=== PATIENT | male | born 1940 | race Caucasian/White ===

== ENCOUNTER 2017-06-03 11:00 | Inpatient (IN) | payer MEDICARE ==
--- NOTE | 2017-05-29 14:23 | HP ---
HISTORY AND PHYSICAL: DATE OF SURGERY: 06/03/17 SURGEON: Jazz Charles MD * (DICTATED BY JUNAID MAYER) PROCEDURE: Right total knee arthroplasty. CHIEF COMPLAINT: Right knee pain. HISTORY OF PRESENT ILLNESS: Mr. Dougherty is a 77-year-old gentleman with complaints of right knee pain secondary to advanced osteoarthritis. He has failed conservative management and elected to proceed with a right total knee arthroplasty, which is scheduled for 06/03/17. PAST MEDICAL HISTORY: Hyperlipidemia, hypertension, history of CVA, myelodysplastic syndrome, sleep apnea, AFib, and history of a PE. PAST SURGICAL HISTORY: Laparotomy, deviated septum surgery, hernia repair x2, left heel surgery, right knee arthroscopy. CURRENT MEDICATIONS: 1. [place]-3. 2. Metoprolol 25 mg daily. 3. Lisinopril 10 mg daily. 4. Tylenol as needed. 5. Benadryl as needed. 6. Hydroxyurea 500 mg daily. 7. Lipitor 20 mg at bedtime. 8. Coumadin. ALLERGIES: No known drug allergies. FAMILY HISTORY: Prostate cancer and Afib. SOCIAL HISTORY: This is a 77-year-old gentleman, lives with his . He does not smoke, use drugs or alcohol. REVIEW OF SYSTEMS: A complete 14-point review of systems was reviewed with the patient. It was positive for occasional lightheadedness, history of stroke and pulmonary embolism. PHYSICAL EXAMINATION GENERAL: He is well developed, well nourished, in no acute distress. He is alert and oriented x3. Pleasant mood and appropriate affect. VITAL SIGNS: He stands 6 feet 2 inches tall, weighs 186 pounds. His blood pressure is 128/74, his heart rate is 72. HEENT: Normocephalic, atraumatic. NECK: Supple. No palpable lymph nodes. PULMONARY: The lungs are clear to auscultation bilaterally. CARDIO: Regular rate and rhythm. ABDOMEN: Soft, nontender, and nondistended. MUSCULOSKELETAL: Right lower extremity - the skin is intact. There are no open wounds or abrasions. He has tenderness over the medial and lateral joint line. His lower extremity muscle group strengths are intact at 5/5. He has 2+ dorsalis pedis pulses and intact sensation. NEUROLOGIC: Cranial nerves II through XII are intact. ASSESSMENT AND PLAN: Mr. Dougherty is a 77-year-old gentleman with complaints of right knee pain secondary to advanced osteoarthritis. He has failed conservative management and has elected to proceed with a right total knee arthroplasty, which is scheduled for 06/03/[address] Charles discussed the risks and benefits of the surgery at today's visit and all of his questions were answered. He was instructed to stop taking his Coumadin a week prior to the surgery, though bridge him on Lovenox and will stop that 24 hours prior to discharge. He will see Dr. Charles 2 weeks after the surgery. JUNAID MAYER [id number]/[facility] #: [id number] ANDRÉS
[~2017-06-03 11:00] MED LIST: Buffered Lidocaine 0.9% SYRIN* 5 ML/SYR SYRINGE INTRADERM ONE; Famotidine IV* 10 MG/ML 2 ML (20 mg) IV ONE; Gabapentin CAP(*) 300 MG PO ONE; Lidocaine 2% PF * 5 ML VIAL ONE; ROPIVACAINE 5 MG/ML 30 ML BTL (0.5%) ONE
[2017-06-03] MEDS ORDERED: fentaNYL* 50 MCG/ML 2 ML VIAL (100 MCG VIAL) ONE (11:17)
[2017-06-03] MEDS ORDERED: Midazolam* 1 MG/ML 5 ML VIAL (5 MG) ONE (11:17)
[2017-06-03] MEDS ORDERED: KETAMINE HCL* 50 MG/ML 10 ML VIAL ONE (11:18)
[2017-06-03] MEDS ORDERED: Morphine PF AMP (0.5MG/ML)* 5 MG/10 ML AMP ONE (11:18)
[2017-06-03] MEDS ORDERED: Gabapentin CAP(*) 300 MG ONE (11:29)
[2017-06-03] MEDS ORDERED: Buffered Lidocaine 0.9% SYRIN* 5 ML/SYR SYRINGE ONE (11:29)
[2017-06-03] MEDS ORDERED: Famotidine IV* 10 MG/ML 2 ML (20 mg) ONE (11:29)
--- NOTE | 2017-06-03 11:43 | RAD ---
Indication: Hypertension. Sleep apnea. Arrhythmia. Comparison: December 07, 2014 Technique: Upright AP 1113 hours Report: No focal pulmonary lesion, compelling alveolar consolidation, pleural effusion, pneumothorax. Upper normal heart size accounting for portable AP technique. Unremarkable central pulmonary vasculature and mediastinal contours. Bilateral acromioclavicular and glenohumeral joint arthropathy noted. IMPRESSION: Upper normal heart size. No acute cardiopulmonary process evident.
[2017-06-03] MEDS ORDERED: Dexamethasone IV* 4 MG/ML 1 ML (4 MG) ONE (11:47)
[2017-06-03] MEDS ORDERED: Propofol* 10 MG/ML 20 ML BTL IV PUSH ONE (11:47)
[2017-06-03] MEDS ORDERED: Lidocaine 2% PF * 5 ML VIAL ONE (11:47)
[2017-06-03] MEDS ORDERED: Ondansetron INJ* 2 MG/ML VIAL ONE (11:47)
[2017-06-03] MEDS ORDERED: Ketorolac INJ* 30 MG/ML 1 ML VIAL ONE (11:47)
[2017-06-03] MEDS ORDERED: ceFAZolin 2 GM PREMIX (*) 50 ML IVPB ONE (12:11)
[2017-06-03] MEDS ORDERED: Bupivacaine 0.5% SDV PF* 30 ML VIAL ONE (14:07)
[2017-06-03] MEDS ORDERED: oxyCODONE TAB* 5 MG TAB PO PRN ×2 (15:11→20:00)
[2017-06-03] MEDS ORDERED: Acetaminophen TAB* 325 MG PO PRN (15:11)
[2017-06-03] MEDS ORDERED: DiMENhydriNATE IV* 50 MG/ML VIAL IV PUSH PRN (15:11)
[2017-06-03] MEDS ORDERED: Gabapentin CAP(*) 100 MG PO ONE (15:13)
[2017-06-03] MEDS ORDERED: Naloxone* 0.4 MG/ML 1 ML VIAL IV PRN (15:14)
[2017-06-03] MEDS ORDERED: Nalbuphine* 20 MG/ML 1 ML VIAL IV PRN (15:14)
[2017-06-03] MEDS ORDERED: Ondansetron INJ* 2 MG/ML VIAL IV PRN (15:14)
[2017-06-03] MEDS ORDERED: oxyCODONE/Acetamin 5/325 MG* TAB PO PRN (15:14)
[2017-06-03] MEDS ORDERED: Labetalol IV* 5 MG/ML 20 ML VIAL ONE (15:46)
[2017-06-03] MEDS ORDERED: hydrALAZINE IV* 20 MG/ML VIAL ONE (15:53)
[2017-06-03] MEDS ORDERED: Magnesium Hydroxide LIQ* 30 ML UDC PO PRN (16:26)
[2017-06-03] MEDS ORDERED: Bisacodyl SUPP* 10 MG SUPP PR PRN (16:26)
[2017-06-03] MEDS ORDERED: HYDROmorphone* 1 MG/ML 1 ML CARPUJECT ONE ×2 (17:03→17:31)
--- NOTE | 2017-06-03 18:05 | RAD ---
INDICATION: Right knee arthroplasty COMPARISON: None FINDINGS: 5.6 seconds of fluoroscopy were provided for the orthopedics department. Fluoroscopic spot imaging of the knee were obtained for operative control and show right knee arthroplasty. Post procedure images are pending . CPT II Codes: 6045F (fluoro time doc)
[2017-06-03] MEDS: HYDROmorphone* 1 MG/ML 1 ML CARPUJECT IV PRN ×3 (19:21→19:32)
[2017-06-03] MEDS ORDERED: Gabapentin CAP(*) 100 MG ONE (19:23)
--- NOTE | 2017-06-03 20:37 | RAD ---
INDICATION: Right total knee replacement COMPARISON: April 10, 2017 TECHNIQUE: AP and lateral views were obtained. FINDINGS: Portable views show right knee arthroplasty. Both femoral and tibial components appear well seated. There is an overlying cooling jacket. IMPRESSION: POSTOPERATIVE RIGHT KNEE ARTHROPLASTY.
[2017-06-03] MEDS: D5W 1/2 NS 1000 ML BAG* 1,000 ML IV SCH (21:17)
[2017-06-03] MEDS: Docusate CAP* 100 MG PO SCH (21:19)
[2017-06-03] MEDS ORDERED: Warfarin TAB(*) 6 MG PO ONE (21:30)
[2017-06-03] MEDS: Acetaminophen TAB* 325 MG PO SCH (22:19)
[2017-06-03] MEDS ORDERED: ceFAZolin 1 GM VIAL(*) 1 GM in NS 0.9% 50 ML* 50 ML IVPB SCH (23:00)
[2017-06-03] MEDS: ceFAZolin 1 GM in Dextrose (*) 1 GM/50 ML BAG IVPB SCH (23:07)
--- NOTE | 2017-06-04 00:38 | CONS ---
CC: Dr. Salinas; Dr. Charles * CONSULTATION REPORT: DATE OF CONSULT: 06/03/17 PRIMARY CARE PROVIDER: Dr. Salinas. REQUESTING PHYSICIAN FOR CONSULT: Dr. Charles. MY ATTENDING PHYSICIAN WHILE IN THE HOSPITAL: Dr. Moise Ray (report dictated by Bob Rebollar NP). REASON FOR MEDICAL CONSULT: Evaluation and management of medical comanagement. HISTORY OF PRESENT ILLNESS: Mr. Dougherty is a 77-year-old male patient with a complex medical history. He has a history of hypertension, hyperlipidemia, and history of CVA. He has a history of myelodysplastic syndrome, JUAN FRANCISCO, AFib, a history of PE, and antiphospholipid syndrome. He comes into the orthopedic services today for an elective right total knee replacement. He was evaluated by Dr. Charles in the outpatient setting. He is having significant amount of pain , it was affecting his activities of daily living and he was failing conservative therapy. Because of this, he presented to Dr. Charles's service, it was felt that he would benefit from a total knee replacement which he underwent today. We were asked to evaluate for comanagement. He was evaluated in the PACU. He says he is feeling well. He denies any chest pain, denies any shortness of breath, and denies having any abdominal pain. He says that he is not having any chest pain. He denies feeling lightheaded. He says he has got decreased sensation to the lower extremity, but of note, he did receive a spinal. He denies having any pain in his right knee. He says his pain is actually well controlled. But again because of his complexity, we were asked to evaluate in consult. PAST MEDICAL HISTORY: Significant for: 1. Hypertension. 2. Hyperlipidemia. 3. CVA with residual right-sided weakness and right facial droop and also difficulty with speech. 4. He has a history MDS. 5. JUAN FRANCISCO. 6. AFib. 7. History of PE. 8. Antiphospholipid syndrome. PAST SURGICAL HISTORY: 1. He has had a laparotomy. 2. He has had a deviated septum repair. 3. Hernia repair x2. 4. Left heel surgery. 5. Right knee arthroscopy. 6. Now he is status post right total knee replacement. MEDICATIONS: His home meds according to the preop list include: 1. Warfarin 5 mg in the morning. 2. Warfarin 7.5 mg alternating with 5 mg. 3. [place]-3 1200 mg p.o. q.a.m. 4. Toprol-XL 25 mg daily. 5. Lisinopril 10 mg daily. 6. Hydroxyurea 500 mg p.o. q.a.m. 7. Benadryl 25 mg p.o. daily. 8. Lipitor 20 mg q.a.m. 9. Tylenol 1000 mg p.o. b.i.d. as needed. ALLERGIES TO MEDICATIONS: Include no known drug allergies. FAMILY HISTORY: His mother is alive at the age of 99 and to his knowledge is healthy. Father had a history of prostate cancer. SOCIAL HISTORY: He does not smoke and does not drink. Surrogate decision maker is his . REVIEW OF SYSTEMS: There is no documented fever. He denied having any significant weight change. Denies having any double vision. No ear discharge. No rhinorrhea. No sore throat. No thyroid enlargement. Denies having any chest pain. No orthopnea, no nocturnal dyspnea. There is no abdominal pain. No nausea, no vomiting. No dysuria, no frequency. No seizure, no loss of consciousness. No pruritus and no skin ulcerations. Review of 14 systems completed and all others negative. PHYSICAL EXAM: Vital Signs: Blood pressure 133/70, pulse of 68, respirations 18, O2 sat 94%, and temperature 97.2. General: At this time, Mr. Dougherty is a 77-year- old male patient, who appears to be well-nourished, well-developed, and does not appear to be in any acute distress. He is sitting the PACU bed. HEENT: Head atraumatic and normocephalic. Eyes, EOMs intact. Sclerae anicteric and not pale. Throat, oral mucosa appears to be moist. No oropharyngeal erythema. Neck: Supple. Lungs: Clear to auscultation bilaterally. No wheezes, rales, or rhonchi. Heart sounds S1 and S2, irregularly irregular rate. No murmurs, rubs, or gallops. Abdomen: Soft, flat , and nontender. Bowel sounds hypoactive. Extremities: Pulses were 2+ throughout. No peripheral edema. He is moving all 4 extremities with the exception of the right lower extremity as that is the operative leg. He does have some weakness noted to the right side compared to the left. Neurologically , he is awake, he is alert, he is oriented x3. He does have some dysarthria. He does have a slight right facial droop and he also has some weakness through his right side. No other gross focal deficits. His skin is intact with an exception he does have an incision to the right knee which is covered with an Guillermo dressing. Hemovac is clean, dry, and intact. DIAGNOSTIC STUDIES/LAB DATA: Preop revealed WBC of 6.6, RBC of 4.53, hemoglobin 14.8, hematocrit 44, and platelet count of 273. INR was 1.08. Sodium 139, potassium 4.6, chloride of 105, bicarb 30, BUN 15, creatinine of 1.15, glucose 89. AST 27, and ALT 33. Urine preop negative. He did have a chest x-ray preop, which showed upper normal heart size. No acute cardiac process evident. He had an EKG as well, which showed atrial fibrillation rate of 59. No ST elevations or T-wave inversions were noted. Old medical records were reviewed. ASSESSMENT AND PLAN: Mr. Dougherty is a 77-year-old male patient with multiple medical problems coming into Dr. Charles's service today for an elective right total knee. He will be admitted under orthopedic services; however, we were asked to evaluate for consult. Recommendations at this point are: 1. Status post right total knee replacement. I will defer the management to Dr. Charles. 2. History of hypertension. Continue meds as prescribed. 3. Hyperlipidemia. Continue statin. 4. History of cerebrovascular accident. At this point he is on warfarin. I would recommend getting him back on his blood thinners as soon as possible and I would probably recommend doing full-dose anticoagulation in the form of Lovenox and bridging him to Coumadin until his INR is therapeutic because of his extensive history. 5. Myelodysplastic syndrome. Continue his hydroxyurea. 6. Obstructive sleep apnea. I did order his CPAP and I will order pulse oximetry for 24 hours postop because he did receive spinal. 7. Atrial fibrillation. Again, he has a history of a stroke, he has atrial fibrillation. I think he needs to be bridged with therapeutic Lovenox to warfarin when it is deemed appropriate by Dr. Charles. She suggests starting this in the morning. 8. History of pulmonary embolism and antiphospholipid syndrome. Again, he just had orthopedic surgery, has a huge risk for clots. Again, I think what is deem safe, I would put him on therapeutic Lovenox at 80 mg b.i.d. and bridge him to warfarin until he is therapeutic. I did discuss this with Dr. Charles, she was in agreement with this. We will start this tomorrow. 10. DVT prophylaxis. Again, he will be on therapeutic Lovenox starting tomorrow. 11. Code status. Full code. 12. Fluids, electrolytes, and nutrition. I would recommend a heart-healthy diet. TIME SPENT: On the consult was approximately 60 minutes, greater than half that time was spent [id number] with the patient obtaining my history and physical, the other half time was spent going over the plan of care with the patient and implementing the plan of care. I did discuss the plan of care with my attending, Dr. Ray; he is agreement. BOB REBOLLAR, CODY [id number]/[facility] #: [id number] MTDLeigh Ann
[2017-06-04] MEDS: Acetaminophen TAB* 325 MG PO SCH ×2 (02:36→05:52)
--- NOTE | 2017-06-04 06:16 | OP ---
DATE OF OPERATION: 06/03/17 - ROOM #342 DATE OF : 42 SURGEON: Jazz Charles MD. GALLERY OR MUSEUM CURATOR: JUNAID Neil. Ms. Jessica did help throughout the procedure with preparation of the leg, wound retraction, manipulation of the knee and wound closure. ANESTHESIOLOGIST: Dr. Verito Alexander. ANESTHESIA: Spinal with adductor nerve block. 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 OPERATIVE PROCEDURE: Right total knee arthroplasty. HARDWARE USED: This was a [employer] cemented total knee arthroplasty hardware with 2 packages of Simplex bone cement. For the femur, a size 7 right posterior stabilized Legion nonporous femoral component. For the tibia, size 7 right tibial base plate. For the insert, a 9 mm constrained articular insert size 7/8 and for the patella 35 mm 3 peg all poly patella. TOURNIQUET TIME: 94 minutes. COMPLICATIONS: None. SPECIMEN: Multiple culture swab sent to Pathology, soft tissue from the joint sent to Pathology, multiple pieces of bone and cartilage sent to Pathology. ESTIMATED BLOOD LOSS: 350 cc. BRIEF HISTORY/INDICATION: Mr. Dougherty is 77-year-old gentleman with prior trauma greater than 20 years ago. He had a femoral shaft fracture as well as distal tibial shaft fracture. These were treated with surgery and subsequent hardware removal. He does have callus formation and abnormal alignment of the femoral and tibial shaft. He developed severe end-stage posttraumatic arthritis of the knee joints. He developed a significant flexion contracture of the knee. Patient failed conservative treatment with anti-inflammatories, pain medication, intra- articular injections, and physical therapy. He elected to undergo right total knee arthroplasty due to continued pain and decreased quality of life. Informed consent was obtained from the patient. He understood the risks of the procedure included, but were not limited to bleeding , infection, damage to nearby structures, continued pain, need for further surgery, intraoperative fracture, nerve palsy, hardware failure or loosening, knee stiffness, loss of motion, stroke, heart attack, blood clot, and . He wished to proceed. INTRAOPERATIVE FINDINGS: Intraoperatively, the patient was noted to have a 20 degree flexion contracture with 120 degrees of flexion. Postop range of motion with full extension to 135 degrees of flexion. Patient was noted to have tricompartmental full thickness loss cartilage. He had severe contracture of the MCL and a varus deformity. DESCRIPTION OF PROCEDURE: Mr. Dougherty is 77-year-old gentleman identified in the preanesthesia unit. His right lower extremity was marked as the correct operative side. Informed consent was signed and placed in the chart. The patient was taken to the operating room and placed under spinal anesthesia with an adductor nerve block. A Huffmna catheter was placed. Tourniquet was placed on the right thigh. Right lower extremity was prepped and draped in the usual sterile fashion. Preop time-out was made to correctly identify the patient's side and site. Appropriate perioperative antibiotics were given within 1 hour of incision. Tourniquet was inflated and total tourniquet time for this procedure was 94 minutes. The 10-blade was used to make a standard midline incision of approximately 14 cm. This was carried down sharply to the extensor mechanism. A new 10-blade was used to make a standard medial parapatellar arthrotomy. Patella was subluxed laterally. Electrocautery was used to subperiosteally elevate soft tissue off the superomedial tibia to the mid sagittal plane. The knee was carefully flexed up. Anterior horn of the lateral meniscus was released. ACL was no longer evident. Due to the patient's prior femoral fracture with deformed anatomy, custom implants had [facility] [employer] [facility]. The femoral cutting guide was carefully placed on the distal femur and pinned into position. Oscillating saw was used to make a distal femoral cut. Using the 2 pinholes on the distal femur, size 7 multi- cutting jig was pinned down the distal femur and the appropriate chamfer cuts were made. It was determined that due to the patient's 20 degree flexion contracture, an additional 2-mm of distal femoral bone would be taken. This was carefully done with an oscillating saw. The multi-cutting jig was once again placed and used to make the appropriate chamfer cuts. Next, attention was turned to the preparation of the proximal tibia. The PCL was carefully released and the tibia was subluxed anteriorly. The custom tibial cutting guide was placed on the proximal tibia. It was determined by me that this would not be the appropriate proximal tibial cut, therefore, this was not used. Extramedullary tibial cutting guide was pinned down the proximal tibia. Oscillating saw was used to make a cut perpendicular to the mechanical axis of the tibia. The knee was brought into full extension. There was severe MCL contracture and therefore soft tissue release was carefully performed. The knee was flexed up. Lamina bus monitor was placed both medially and laterally. Any remaining meniscus was carefully removed using electrocautery. Posterior osteophytes were removed using a curved osteotome and curette. Tibial tray and drop anastacio showed satisfactory proximal tibial cut. The knee was brought out into full extension. Spacer block had good fit with full extension. There was tightness medially. A 15 blade was used to make a small amount of pie- crusting along the MCL. Medial and lateral ligament balancing was much improved at this point. Flexion and extension gap was well balanced. A size 7 right femoral component was impacted down into distal femur and had good fit. The box for the posterior stabilized implant was repaired using a reamer and box cut osteotome. Trial size 7 tibial tray with a 9-mm insert trial was placed and the knee was taken through a range of motion. Knee had full extension to 135 degrees of flexion, good patellofemoral tracking. The patella was everted. A 9 mm of patellar bone and cartilage was carefully removed with an oscillating saw. The patella was sized to a size 35. Three peg holes were drilled through the size 35 guide. Size 35 patella was placed and the knee was taken through a range of motion. There was good patellofemoral tracking. All trials were carefully removed. The tibia was subluxed anteriorly and sized to a size 7. Proximal tibia was prepared using a size 7 keel punch. All bony cut surfaces were copiously irrigated with sterile saline and dried. Final implants were cemented into place starting with the tibia followed by the femur and last the patella. A 9 mm insert trial was placed while the knee was brought out to full extension. Tourniquet was turned down at 94 minutes. The knee was copiously irrigated with sterile saline. Once the cement had fully cured, the insert trial was removed. Any excess cement was carefully removed from around the implants and capsule. Electrocautery was used to obtain meticulous hemostasis. A size 7/8 9 mm constrained articular insert was chosen as the final insert due to the MCL pie- crusting and prior contracture. This was locked into position on the tibial tray. Stability of the insert was checked and rechecked and noted to be stable. Final range of motion with full extension to 135 degrees of flexion with satisfactory patellofemoral tracking. Anatomic valgus alignment overall. The knee was copiously irrigated with sterile saline. The extensor mechanism was closed over a medium Hemovac drain using interrupted number #1 Vicryl. The rest of the incision was closed in a layered fashion using 0 and 2-0 Vicryls. Skin was closed using running 3-0 nylon suture. Sterile Xeroform, 4x4s, and Webril were used to cover the incision. Guillermo wrap and cold pack were placed over this. The patient's anesthesia was reversed without difficulty. He was taken to the PACU in stable condition. Intended weightbearing will be weightbearing as tolerated. Intended DVT prophylaxis will be Coumadin with a therapeutic Lovenox bridge due to his prior blood clot history. [id number]/[facility] #: [id number] ANDRÉS
[2017-06-04] MEDS ORDERED: Morphine INJ* 4 MG/ML 1 ML CARPUJECT IV PRN (06:47)
[2017-06-04] MEDS ORDERED: oxyCODONE/Acetamin 5/325 MG* TAB PO PRN (06:47)
[2017-06-04] MEDS ORDERED: diPHENhydraMINE IV* 50 MG/ML 1 ml VIAL (BENADRYL) IV PRN (06:47)
[2017-06-04] MEDS ORDERED: Ondansetron INJ* 2 MG/ML VIAL IV PRN (06:47)
[2017-06-04] MEDS: ceFAZolin 1 GM in Dextrose (*) 1 GM/50 ML BAG IVPB SCH ×2 (06:53→15:04)
[2017-06-04] MEDS: Metoprolol Succinate XL TAB* 25 MG PO SCH (08:30)
[2017-06-04] MEDS: Docusate CAP* 100 MG PO SCH ×2 (08:30→21:06)
[2017-06-04] MEDS: Atorvastatin* 20 MG TAB PO SCH (08:30)
[2017-06-04] MEDS: Lisinopril TAB* 10 MG PO SCH (08:31)
[2017-06-04] MEDS: oxyCODONE/Acetamin 5/325 MG* TAB PO PRN ×4 (08:31→21:06)
[2017-06-04] MEDS: HydroxyUREA CAP* 500 MG CAP PO SCH (08:31)
[2017-06-04] MEDS: Vitamin THERAPEUTIC TAB PO SCH (08:31)
[2017-06-04] MEDS: Enoxaparin(*) 80 MG/0.8 ML SYR SUBCUT SCH ×2 (08:32→21:08)
[2017-06-04 08:51] LABS: Hematocrit 34 % (42-52); Hemoglobin 11.6 g/dl (14.0-18.0)
[2017-06-04] MEDS ORDERED: Enoxaparin(*) 30 MG/0.3 ML SYR SUBCUT SCH (09:00)
[2017-06-04 09:07] LABS: BUN/Creatinine Ratio 14.6 (8-20); Calcium 8.4 mg/dL (8.6-10.3); EGFR African American 97.9 (>60); EGFR Non-African American 76.2 (>60); Potassium 4.1 mmol/L (3.5-5.0)
--- NOTE | 2017-06-04 11:39 | PN ---
Progress Note - Progress Note Date of Service: 06/04/17 SOAP: Subjective: [Pt was seen this am resting comfortably in bed. He states that he slept good last night getting "a solid 4 and a half hours". He denies any chest pain, SOB, or coughing. Denies any n/t. ] Objective: [General: Pt is alert, awake and oriented. NAD RLE: Dressing is on, clean/dry and intact. Hemovac was pulled today. total volume was 250 ccs. Calf is soft and non tender. Pt is able to df/pf. NVI. ] Vital Signs Temp 97.6 F 06/04/17 11:09 Pulse 82 06/04/17 11:09 Resp 17 06/04/17 11:09 BP 106/57 06/04/17 11:09 Pulse Ox 99 06/04/17 11:09 Intake & Output 06/03/17 06/04/17 06/04/17 18:59 06:59 18:59 Intake Total 1400 235 225 Output Total 695 675 Balance 705 -440 225 Weight 182 lb Intake: IV Fluids 1400 55 ABX - CEFAZOLIN 55 LR 1400 Oral 180 225 Output: Huffman 675 675 Residual 20 Coude 14 Fr 20 Other: # Bowel Movements 0 Assessment: [POD 1 RTKA ] Plan: [Continue with current pain management Continue with Lovenox per hospitalists. Coumadin 10mg tonight. PT/OT today Huffman out today Dressing change tomorrow. ]
[2017-06-04] MEDS: D5W 1/2 NS 1000 ML BAG* 1,000 ML IV SCH (11:46)
[2017-06-04] MEDS: Acetaminophen TAB* 325 MG PO PRN (12:54)
--- NOTE | 2017-06-04 14:21 | PN ---
Subjective Date of Service: 06/04/17 Interval History: Patient seen and examined at bedside. Reports good pain control Had episode of emesis earlier this afternoon, secondary to eating pork. Denies fever/chills, CP, SOB. Denies nausea now. No other acute concerns. Family History: Unchanged from Admission Social History: Unchanged from Admission Past Medical History: Unchanged from Admission Objective Active Medications: Acetaminophen (Tylenol Tab*) 650 mg PO Q4H PRN PRN Reason: PAIN OR TEMPERATURE Last Admin: 06/04/17 12:54 Dose: 650 mg Atorvastatin Calcium (Lip[facility]*) [facility] Last Admin: 06/04/17 08:30 Dose: 20 mg Bisacodyl (Dulcolax Supp*) 10 mg [place] DAILY PRN PRN Reason: constipation Diphenhydramine HCl (Benadryl Iv*) 25 mg IV Q6H PRN PRN Reason: itching or insomnia Docusate Sodium (Colace Cap*) 100 mg PO BID [facility] Last Admin: 06/04/17 08:30 Dose: 100 mg Enoxaparin Sodium (Lovenox(*)) 80 mg SUBCUT Q12H [facility] Last Admin: 06/04/17 08:32 Dose: 80 mg Hydroxyurea (Hydrea Cap*) 500 mg PO [facility] Last Admin: 06/04/17 08:31 Dose: 500 mg Dextrose/Sodium Chloride (D5w 1/2 Ns 1000 Ml Bag*) 1,000 mls @ 75 mls/hr IV PER RATE [facility] Last Admin: 06/04/17 11:46 Dose: 75 mls/hr Cefazolin Sodium/Dextrose (Kefzol 1 Gm In Dextrose Duplex (*)) 1 gm in 50 mls @ 200 mls/hr IVPB Q8H [facility] Stop: 06/04/17 15:14 Last Admin: 06/04/17 06:53 Dose: 200 mls/hr Lactulose (Lactulose*) 30 ml PO Q6H PRN PRN Reason: constipation Lisinopril (Prinivil Tab*) 10 mg PO [facility] Last Admin: 06/04/17 08:31 Dose: 10 mg Magnesium Hydroxide (Milk Of Magnesia Liq*) 30 ml PO Q6H PRN PRN Reason: constipation Metoprolol Succinate (Toprol Xl Tab*) 25 mg PO [facility] Last Admin: 06/04/17 08:30 Dose: 25 mg Morphine Sulfate (Morphine Inj (Syringe)*) 2 mg IV Q2H PRN PRN Reason: PAIN - UNCONTROLLED Multivitamins (Theragran Tab*) 1 tab PO DAILY [facility] Last Admin: 06/04/17 08:31 Dose: 1 tab Ondansetron HCl (Zofran Inj*) 4 mg IV Q6H PRN PRN Reason: nausea Oxycodone HCl (Roxycodone Tab*) 10 mg PO Q4H PRN PRN Reason: PAIN - SEVERE Oxycodone/Acetaminophen (Percocet 5/325 Tab*) 1 tab PO Q3H PRN PRN Reason: PAIN - MODERATE Last Admin: 06/04/17 12:53 Dose: 1 tab Oxycodone/Acetaminophen (Percocet 5/325 Tab*) 2 tab PO Q3H PRN PRN Reason: PAIN - MODERATE TO SEVERE Pharmacy Profile Note (Coumadin Daily Reminder*) 1 note FOLLOW UP 1700 [facility] Warfarin Sodium (Coumadin Tab(*)) 10 mg PO ONCE@1700 ONE PRN Reason: Protocol Stop: 06/04/17 17:01 Vital Signs 06/03/17 06/03/17 06/03/17 18:02 18:05 18:10 Temperature 97.2 F Pulse Rate 62 67 65 Respiratory 16 16 18 Rate Blood Pressure 118/77 125/73 121/80 (mmHg) O2 Sat by Pulse 96 93 93 Oximetry 06/03/17 06/03/17 06/03/17 18:15 18:30 18:45 Temperature Pulse Rate 68 65 54 Respiratory 15 15 15 Rate Blood Pressure 133/70 122/68 121/61 (mmHg) O2 Sat by Pulse 94 93 95 Oximetry 06/03/17 06/03/17 06/03/17 19:00 19:15 19:21 Temperature Pulse Rate 62 57 Respiratory 15 16 16 Rate Blood Pressure 120/71 114/65 (mmHg) O2 Sat by Pulse 94 94 Oximetry 06/03/17 06/03/17 06/03/17 19:27 19:30 19:32 Temperature 97.3 F Pulse Rate 61 Respiratory 16 18 16 Rate Blood Pressure 112/67 (mmHg) O2 Sat by Pulse 95 Oximetry 06/03/17 06/03/17 06/03/17 19:45 20:22 20:47 Temperature 97.3 F Pulse Rate 61 67 Respiratory 16 18 18 Rate Blood Pressure 111/74 121/70 (mmHg) O2 Sat by Pulse 97 98 Oximetry 06/03/17 06/03/17 06/03/17 21:22 22:14 22:24 Temperature 98.8 F Pulse Rate 57 Respiratory 17 20 Rate Blood Pressure 136/79 (mmHg) O2 Sat by Pulse 100 100 Oximetry 06/03/17 06/03/17 06/04/17 22:29 22:38 00:00 Temperature 97.4 F Pulse Rate 67 Respiratory 16 18 Rate Blood Pressure 124/74 (mmHg) O2 Sat by Pulse 100 99 Oximetry 06/04/17 06/04/17 06/04/17 00:06 01:26 02:29 Temperature 97.6 F 97.6 F Pulse Rate 60 57 Respiratory 16 16 16 Rate Blood Pressure 112/66 110/66 (mmHg) O2 Sat by Pulse 99 98 Oximetry 06/04/17 06/04/17 06/04/17 03:41 04:43 05:26 Temperature 97.7 F Pulse Rate 57 Respiratory 16 16 18 Rate Blood Pressure 120/71 (mmHg) O2 Sat by Pulse 97 Oximetry 06/04/17 06/04/17 06/04/17 06:43 07:25 08:00 Temperature 97.2 F Pulse Rate 64 Respiratory 16 16 16 Rate Blood Pressure 123/74 (mmHg) O2 Sat by Pulse 100 100 Oximetry 06/04/17 06/04/17 06/04/17 08:31 10:31 11:09 Temperature 97.6 F Pulse Rate 82 Respiratory 16 16 17 Rate Blood Pressure 106/57 (mmHg) O2 Sat by Pulse 99 Oximetry 06/04/17 12:53 Temperature Pulse Rate Respiratory 16 Rate Blood Pressure (mmHg) O2 Sat by Pulse Oximetry Oxygen Devices in Use Now: None Appearance: Pleasant male patient, OOB to chair, in NAD Eyes: No Scleral Icterus Ears/Nose/Mouth/Throat: Clear Oropharnyx, Mucous Membranes Moist Neck: NL Appearance and Movements; NL JVP Respiratory: Symmetrical Chest Expansion and Respiratory Effort, Clear to Auscultation Cardiovascular: NL Sounds; No Murmurs; No JVD, - - irregularly irregular Abdominal: NL Sounds; No Tenderness; No Distention Extremities: - - right knee dressing c/d/i, distally nvi Neurological: Alert and Oriented x 3, NL Muscle Strength and Tone Lines/Tubes/Other Access: Clean, Dry and Intact Peripheral IV Nutrition: Taking PO's Result Diagrams: 06/04/17 08:40 06/04/17 08:40 Microbiology and Other Data: Microbiology 06/03/17 15:27 Wound Gram Stain - Final Wound Tissue Culture - Preliminary No Growth Day 1 06/03/17 15:27 Gram Stain - Final Knee Right Wound Culture - Preliminary No Growth Day 1 06/03/17 15:27 Anaerobic Culture - Preliminary Body Fluid No Growth Day 1 Assess/Plan/Problems-Billing Assessment: Mr. Dougherty is a 77 yo male who was admitted on 06/03 for elective right knee arthroplasty. - Patient Problems (1) Status post total right knee replacement Code(s): Z96.651 - PRESENCE OF RIGHT ARTIFICIAL KNEE JOINT Comment: POD #1, management per ortho Continue pain mangement PT/OT Body fluid pathology from OR pending, crystal study ordered (2) HTN (hypertension) Code(s): I10 - ESSENTIAL (PRIMARY) HYPERTENSION Comment: Normotensive Continue home metoprolol, lisinopril (3) HLD (hyperlipidemia) Code(s): E78.5 - HYPERLIPIDEMIA, UNSPECIFIED Comment: Continue statin (4) Myelodysplastic syndrome Code(s): D46.9 - MYELODYSPLASTIC SYNDROME, UNSPECIFIED Comment: Continue hydroxyurea Outpatient follow-up (5) Atrial fibrillation Code(s): I48.91 - UNSPECIFIED ATRIAL FIBRILLATION Comment: Rate controlled Continue metoprolol, warfarin (6) JUAN FRANCISCO (obstructive sleep apnea) Code(s): G47.33 - OBSTRUCTIVE SLEEP APNEA (ADULT) (PEDIATRIC) Comment: Continue nighttime CPAP use. (7) History of pulmonary embolus (PE) Code(s): Z86.711 - PERSONAL HISTORY OF PULMONARY EMBOLISM Comment: Also with history of antiphospholipid syndrome and atrial fibrillation Plan for full anticoagulation with warfarin and Lovenox bridge given high risk for thromboembolic event. (8) History of CVA (cerebrovascular accident) Code(s): Z86.73 - PRSNL HX OF TIA (TIA), AND CEREB INFRC W/O RESID DEFICITS (9) DVT prophylaxis Comment: Warfarin with Lovenox bridge Status and Disposition: Inpatient admit. Dispo per ortho. Hospitalist co-medical management.
[2017-06-04] MEDS ORDERED: Warfarin TAB(*) 10 MG PO ONE (17:00)
[2017-06-05] MEDS: oxyCODONE/Acetamin 5/325 MG* TAB PO PRN ×3 (01:40→21:02)
[2017-06-05] MEDS: Acetaminophen TAB* 325 MG PO PRN (03:01)
[2017-06-05 06:57] LABS: Hematocrit 32 % (42-52); Hemoglobin 10.9 g/dl (14.0-18.0)
--- NOTE | 2017-06-05 07:36 | PN ---
Progress Note - Progress Note Date of Service: 06/05/17 SOAP: Subjective: Pt. reports he is doing well with moderate pain r knee. Objective: RLE - dressing changed, inc c/i with min ss drainage. large hematoma. distally calf soft, +df/pf, full sens lt, 2+ dp pulse. Vital Signs: Temp Pulse Resp BP Pulse Ox 97.7 F 82 16 139/76 98 06/05/17 03:06 06/05/17 03:06 06/05/17 05:46 06/05/17 03:06 06/05/17 03:06 Laboratory Results - last 24 hr 06/04/17 06/04/17 06/04/17 08:40 08:40 09:23 Hgb 11.6 L Hct 34 L INR (Anticoag Therapy) 1.12 H Sodium 135 Potassium 4.1 Chloride 106 Carbon Dioxide 22 Anion Gap 7 BUN 14 Creatinine 0.96 Est GFR ( Amer) 97.9 Est GFR (Non-Af Amer) 76.2 BUN/Creatinine Ratio 14.6 Glucose 123 H Calcium 8.4 L 06/05/17 06/05/17 06:24 06:24 Hgb 10.9 L Hct 32 L INR (Anticoag Therapy) 1.63 H Sodium Potassium Chloride Carbon Dioxide Anion Gap BUN Creatinine Est GFR ( Amer) Est GFR (Non-Af Amer) BUN/Creatinine Ratio Glucose Calcium Assessment: 77 yo M pod 2 s/p RTKA Plan: Cont PT/OT wbat aggressive ROM - hematoma 2 to lovenox cont lovenox due to clotting history, likely therapeutic on coumadin by tomorrow 6 mg coumadin tonight plan d/c to home tomorrow 06/06
[2017-06-05] MEDS: HydroxyUREA CAP* 500 MG CAP PO SCH (08:42)
[2017-06-05] MEDS: Docusate CAP* 100 MG PO SCH ×2 (08:42→21:02)
[2017-06-05] MEDS: Atorvastatin* 20 MG TAB PO SCH (08:42)
[2017-06-05] MEDS: Vitamin THERAPEUTIC TAB PO SCH (08:42)
[2017-06-05] MEDS: Metoprolol Succinate XL TAB* 25 MG PO SCH (08:42)
[2017-06-05] MEDS: Lisinopril TAB* 10 MG PO SCH (08:42)
[2017-06-05] MEDS: Enoxaparin(*) 80 MG/0.8 ML SYR SUBCUT SCH ×2 (08:46→21:07)
[2017-06-05] MEDS: oxyCODONE TAB* 5 MG TAB PO PRN ×2 (09:59→15:10)
--- NOTE | 2017-06-05 14:29 | PN ---
Subjective Date of Service: 06/05/17 Interval History: Mr. Mast is very confused but does not offer any complaint. He specifically denies chest pain, SOB, nausea, or abdominal pain. His right knee pain is well controlled. Family History: Unchanged from Admission Social History: Unchanged from Admission Past Medical History: Unchanged from Admission Objective Active Medications: Acetaminophen (Tylenol Tab*) 650 mg PO Q4H PRN Atorvastatin Calcium (Lipitor*) 20 mg PO QAM [facility] Bisacodyl (Dulcolax Supp*) 10 mg [place] DAILY PRN Diphenhydramine HCl (Benadryl Iv*) 25 mg IV Q6H PRN Docusate Sodium (Colace Cap*) 100 mg PO BID [facility] Enoxaparin Sodium (Lovenox(*)) 80 mg SUBCUT Q12H [facility] Hydroxyurea (Hydrea Cap*) 500 mg PO QAM [facility] Lactulose (Lactulose*) 30 ml PO Q6H PRN Lisinopril (Prinivil Tab*) 10 mg PO QAM [facility] Magnesium Hydroxide (Milk Of Magnesia Liq*) 30 ml PO Q6H PRN Metoprolol Succinate (Toprol Xl Tab*) 25 mg PO QAM [facility] Morphine Sulfate (Morphine Inj (Syringe)*) 2 mg IV Q2H PRN Multivitamins (Theragran Tab*) 1 tab PO DAILY [facility] Ondansetron HCl (Zofran Inj*) 4 mg IV Q6H PRN Oxycodone HCl (Roxycodone Tab*) 10 mg PO Q4H PRN Oxycodone/Acetaminophen (Percocet 5/325 Tab*) 1 tab PO Q3H PRN Oxycodone/Acetaminophen (Percocet 5/325 Tab*) 2 tab PO Q3H PRN Pharmacy Profile Note (Coumadin Daily Reminder*) 1 note FOLLOW UP 1700 [facility] Warfarin Sodium (Coumadin Tab(*)) 6 mg PO ONCE@1700 [facility] Vital Signs 06/04/17 06/04/17 06/04/17 14:53 15:24 15:35 Temperature 97.6 F Pulse Rate 65 Respiratory 16 18 Rate Blood Pressure 118/70 (mmHg) O2 Sat by Pulse 99 99 Oximetry 06/04/17 06/04/17 06/04/17 16:43 18:39 19:03 Temperature 97.4 F Pulse Rate 73 Respiratory 16 18 16 Rate Blood Pressure (mmHg) O2 Sat by Pulse 99 Oximetry 06/04/17 06/04/17 06/04/17 19:30 21:06 23:06 Temperature Pulse Rate Respiratory 16 16 16 Rate Blood Pressure (mmHg) O2 Sat by Pulse 99 Oximetry 06/04/17 06/05/17 06/05/17 23:36 00:00 00:14 Temperature 97.7 F Pulse Rate 83 Respiratory 17 16 Rate Blood Pressure 145/81 (mmHg) O2 Sat by Pulse 99 99 Oximetry 06/05/17 06/05/17 06/05/17 01:14 01:40 02:18 Temperature Pulse Rate Respiratory 16 16 Rate Blood Pressure (mmHg) O2 Sat by Pulse 99 Oximetry 06/05/17 06/05/17 06/05/17 03:06 03:40 05:46 Temperature 97.7 F Pulse Rate 82 Respiratory 16 16 16 Rate Blood Pressure 139/76 (mmHg) O2 Sat by Pulse 98 Oximetry 06/05/17 06/05/17 06/05/17 07:31 07:35 07:46 Temperature 98.5 F Pulse Rate 95 Respiratory 18 16 16 Rate Blood Pressure 136/81 (mmHg) O2 Sat by Pulse 97 97 Oximetry 06/05/17 06/05/17 09:59 11:29 Temperature 98.1 F Pulse Rate 87 Respiratory 16 20 Rate Blood Pressure 135/72 (mmHg) O2 Sat by Pulse 98 Oximetry Oxygen Devices in Use Now: None Appearance: Male sitting up in chair in NAD Eyes: No Scleral Icterus Ears/Nose/Mouth/Throat: Mucous Membranes Moist Neck: Trachea Midline Respiratory: Symmetrical Chest Expansion and Respiratory Effort, Clear to Auscultation Cardiovascular: NL Sounds; No Murmurs; No JVD, No Edema Abdominal: NL Sounds; No Tenderness; No Distention Lymphatic: No Cervical Adenopathy Extremities: No Edema, - - Right knee in cryounit Skin: No Rash or Ulcers Neurological: Alert and Oriented x 3, NL Muscle Strength and Tone Nutrition: Taking PO's Result Diagrams: 06/05/17 06:24 06/04/17 08:40 Microbiology and Other Data: Microbiology 06/03/17 15:27 Wound Gram Stain - Final Wound Tissue Culture - Preliminary No Growth Day 1 06/03/17 15:27 Gram Stain - Final Knee Right Wound Culture - Preliminary No Growth Day 1 09/12/17 15:27 Anaerobic Culture - Preliminary Body Fluid No Growth Day 1 Assess/Plan/Problems-Billing Assessment: Mr. Dougherty is a 77 yo male who was admitted on 06/03 for elective right knee arthroplasty. - Patient Problems (1) Status post total right knee replacement Comment: - POD #2, management per ortho - Continue pain mangement - PT/OT (2) History of pulmonary embolus (PE) Comment: - Also with history of antiphospholipid syndrome and atrial fibrillation - Plan for full anticoagulation with warfarin and Lovenox bridge given high risk for thromboembolic event. (3) HTN (hypertension) Comment: Normotensive Continue home metoprolol, lisinopril (4) Atrial fibrillation Comment: Rate controlled Continue metoprolol, warfarin with lovenox bridge given history of CVA. (5) HLD (hyperlipidemia) Comment: Continue statin (6) Myelodysplastic syndrome Comment: - Continue hydroxyurea (7) JUAN FRANCISCO (obstructive sleep apnea) Comment: Continue CPAP. (8) DVT prophylaxis Comment: Warfarin with Lovenox bridge Status and Disposition: Inpatient admit. Dispo per ortho. Hospitalist co-medical management.
[2017-06-05] MEDS ORDERED: Warfarin TAB(*) 6 MG PO SCH (17:00)
[2017-06-06] MEDS: oxyCODONE/Acetamin 5/325 MG* TAB PO PRN ×3 (02:28→15:37)
[2017-06-06 08:44] LABS: Hematocrit 30 % (42-52); Hemoglobin 10.3 g/dl (14.0-18.0)
[2017-06-06] MEDS: Docusate CAP* 100 MG PO SCH (09:18)
[2017-06-06] MEDS: Vitamin THERAPEUTIC TAB PO SCH (09:18)
[2017-06-06] MEDS: Atorvastatin* 20 MG TAB PO SCH (09:19)
[2017-06-06] MEDS: Metoprolol Succinate XL TAB* 25 MG PO SCH (09:19)
[2017-06-06] MEDS: HydroxyUREA CAP* 500 MG CAP PO SCH (09:19)
[2017-06-06] MEDS: Lisinopril TAB* 10 MG PO SCH (09:19)
--- NOTE | 2017-06-06 12:39 | PN ---
Subjective Date of Service: 06/06/17 Interval History: Mr. Mast remains confused and impulsive but generally cooperative. He reports right knee pain but denies any other complaint. Family History: Unchanged from Admission Social History: Unchanged from Admission Past Medical History: Unchanged from Admission Objective Active Medications: Acetaminophen (Tylenol Tab*) 650 mg PO Q4H PRN Atorvastatin Calcium (Lipitor*) 20 mg PO QAM [facility] Bisacodyl (Dulcolax Supp*) 10 mg [place] DAILY PRN Docusate Sodium (Colace Cap*) 100 mg PO BID [facility] Hydroxyurea (Hydrea Cap*) 500 mg PO QAM [facility] Lactulose (Lactulose*) 30 ml PO Q6H PRN Lisinopril (Prinivil Tab*) 10 mg PO QAM [facility] Magnesium Hydroxide (Milk Of Magnesia Liq*) 30 ml PO Q6H PRN Metoprolol Succinate (Toprol Xl Tab*) 25 mg PO QAM [facility] Morphine Sulfate (Morphine Inj (Syringe)*) 2 mg IV Q2H PRN Multivitamins (Theragran Tab*) 1 tab PO DAILY [facility] Ondansetron HCl (Zofran Inj*) 4 mg IV Q6H PRN Oxycodone HCl (Roxycodone Tab*) 10 mg PO Q4H PRN Oxycodone/Acetaminophen (Percocet 5/325 Tab*) 1 tab PO Q3H PRN Oxycodone/Acetaminophen (Percocet 5/325 Tab*) 2 tab PO Q3H PRN Pharmacy Profile Note (Coumadin Daily Reminder*) 1 note FOLLOW UP 1700 [facility] Vital Signs 06/05/17 06/05/17 06/05/17 15:10 15:34 17:10 Temperature 98.2 F Pulse Rate 90 Respiratory 18 16 15 Rate Blood Pressure 141/73 (mmHg) O2 Sat by Pulse 98 Oximetry 06/05/17 06/05/17 06/05/17 19:42 19:48 20:15 Temperature 98.1 F Pulse Rate 98 Respiratory 15 15 16 Rate Blood Pressure 133/73 (mmHg) O2 Sat by Pulse 97 Oximetry 06/05/17 06/05/17 06/06/17 21:02 23:02 00:00 Temperature Pulse Rate Respiratory 16 16 Rate Blood Pressure (mmHg) O2 Sat by Pulse 95 Oximetry 06/06/17 06/06/17 06/06/17 00:02 02:03 02:28 Temperature 98.6 F Pulse Rate 95 Respiratory 18 16 Rate Blood Pressure 136/65 (mmHg) O2 Sat by Pulse 95 95 Oximetry 06/06/17 06/06/17 06/06/17 03:26 07:35 07:44 Temperature 99.7 F Pulse Rate 91 Respiratory 18 16 Rate Blood Pressure 143/81 (mmHg) O2 Sat by Pulse 95 95 99 Oximetry 06/06/17 06/06/17 06/06/17 07:46 09:20 11:20 Temperature 98.1 F Pulse Rate 97 Respiratory 16 16 16 Rate Blood Pressure 136/64 (mmHg) O2 Sat by Pulse 99 Oximetry 06/06/17 11:40 Temperature 97.7 F Pulse Rate 93 Respiratory 16 Rate Blood Pressure 123/74 (mmHg) O2 Sat by Pulse 100 Oximetry Oxygen Devices in Use Now: None Appearance: Male sitting up in chair in NAD Eyes: No Scleral Icterus Ears/Nose/Mouth/Throat: NL Teeth, Lips, Gums Neck: Trachea Midline Respiratory: Symmetrical Chest Expansion and Respiratory Effort, Clear to Auscultation Cardiovascular: NL Sounds; No Murmurs; No JVD, No Edema Abdominal: NL Sounds; No Tenderness; No Distention Lymphatic: No Cervical Adenopathy Extremities: No Edema Skin: No Rash or Ulcers Neurological: Alert and Oriented x 3, NL Muscle Strength and Tone, - - confused Nutrition: Taking PO's Result Diagrams: 06/06/17 07:48 06/04/17 08:40 Microbiology and Other Data: Microbiology 06/03/17 15:27 Wound Gram Stain - Final Wound Tissue Culture - Preliminary No Growth Day 1 06/03/17 15:27 Gram Stain - Final Knee Right Wound Culture - Preliminary No Growth Day 1 06/03/17 15:27 Anaerobic Culture - Preliminary Body Fluid No Growth Day 1 Assess/Plan/Problems-Billing Assessment: Mr. Dougherty is a 77 yo male who was admitted on 06/03 for elective right knee arthroplasty. - Patient Problems (1) Status post total right knee replacement Comment: - POD #3, management per ortho - Dr. Charles concerned about significant bleeding from knee due to anticoagulation. INR 1.8, lovenox stopped, patient will continue on warfarin only. (2) Delirium Comment: - Persistent. - No inciting factors other than being post-op and hospitalized. Patient also has a history of CVA which may contribute as well. - Supportive care. (3) History of pulmonary embolus (PE) Comment: - Also with history of antiphospholipid syndrome and atrial fibrillation - Continue warfarin as per above. (4) HTN (hypertension) Comment: - Normotensive - Continue home metoprolol, lisinopril (5) Atrial fibrillation Comment: - Rate controlled - Continue metoprolol, warfarin given history of CVA. (6) HLD (hyperlipidemia) Comment: - Continue statin (7) Myelodysplastic syndrome Comment: - Continue hydroxyurea (8) JUAN FRANCISCO (obstructive sleep apnea) Comment: - Continue CPAP. (9) DVT prophylaxis Comment: - Warfarin Status and Disposition: Inpatient admit. OK for discharge per ortho.
[2017-06-06] MEDS ORDERED: Morphine INJ* 2 MG/ML 1 ML SYRINGE (TWO MG - NEW SYRINGE VERSION) IV PRN (15:16)
[2017-06-06 16:22] VITALS: BP 138/83
--- NOTE | 2017-06-07 08:18 | DS ---
DISCHARGE SUMMARY: DATE OF ADMISSION: 06/03/17 DATE OF DISCHARGE: 06/06/17 ATTENDING PHYSICIAN: Jazz Charles MD * (DICTATED BY JUNAID CHEN) PRINCIPAL DIAGNOSIS: Right knee osteoarthritis. SECONDARY DIAGNOSES: 1. Hyperlipidemia. 2. Hypertension. 3. History of cerebrovascular accident. 4. Myelodysplastic syndrome. 5. Sleep apnea. 6. Atrial fibrillation. 7. History of pulmonary embolism. PRINCIPAL PROCEDURE: Right total knee arthroplasty. REASON FOR HOSPITALIZATION: Mr. Dougherty is a 77-year-old male with complaints of right knee pain secondary to advanced osteoarthritis. He had failed conservative management and elected to proceed with a right total knee arthroplasty which was scheduled on 06/03/[address] Charles. HOSPITAL COURSE: The patient was admitted to the hospital on 06/03/17 for anticipated right total knee arthroplasty. He underwent surgery without any complications. He was taken to the recovery room and subsequently the surgical stay unit in a stable condition. He has been weight bearing as tolerated. His vital signs remained stable including afebrile. His blood work was followed including hemoglobin and hematocrit. His hemoglobin was 10.3 and hematocrit was 30 on the day of discharge. INR was 1.85. His INR has been followed throughout the hospital course and daily Coumadin dosing has been carried out. He has also been on Lovenox until he was therapeutic on Coumadin. He was attending physical therapy throughout the hospital course and had done quite well. He is to be discharged to short-term rehab in a stable condition on 06/06. DISCHARGE INSTRUCTIONS: Weight bear as tolerated on the right lower extremity. Continue Coumadin. He will have a PT/INR draws on Friday and . He may shower and daily dressing changes with dry sterile gauze until sutures are removed. The sutures may be removed on postop day #10 and will follow up in the office with Dr. Charles in 4 weeks. JUNAID CHEN [id number]/[facility] [place]: [id number] MTDD
== END 2017-06-06 17:25 | DRG 470 ==
LOC: AA 11:12 → SSU 20:44
PROVIDERS: ADMIT Orthopaedic Surgery Adult Reconstructive Orthopaedic Surgery; ATTEND Orthopaedic Surgery Adult Reconstructive Orthopaedic Surgery
PROC: 0SRC0J9 Replacement of Right Knee Joint with Synthetic Substitute, Cemented, Open Approach (ICD-10-PCS; principal; 2017-06-03 13:30)
DX: M17.31 Unilateral post-traumatic osteoarthritis, right knee (principal); D68.61 Antiphospholipid syndrome; F05 Delirium due to known physiological condition; I69.351 Hemiplegia and hemiparesis following cerebral infarction affecting right dominant side; I48.91 Unspecified atrial fibrillation; I10 Essential (primary) hypertension; E78.5 Hyperlipidemia, unspecified; D46.9 Myelodysplastic syndrome, unspecified; G47.30 Sleep apnea, unspecified; N40.0 Benign prostatic hyperplasia without lower urinary tract symptoms; M25.761 Osteophyte, right knee; M24.561 Contracture, right knee; M21.161 Varus deformity, not elsewhere classified, right knee; Z86.711 Personal history of pulmonary embolism; Z82.49 Family history of ischemic heart disease and other diseases of the circulatory system; Z79.01 Long term (current) use of anticoagulants; Z80.42 Family history of malignant neoplasm of prostate; I69.392 Facial weakness following cerebral infarction; I69.321 Dysphasia following cerebral infarction; Z87.891 Personal history of nicotine dependence
CPT/HCPCS: 36415; 71010; 76001; 80048; 85014; 85018; 85610; 87070; 87073; 87205; 94760; A9270-GY; C1776; J0360; J0690; J1100; J1170; J1200; J1650; J1885; J2250; J2405; J2704; J2795; J3010

== ENCOUNTER 2019-03-31 11:35 | Emergency (ER) | payer MEDICARE ==
[2019-03-31 13:22] VITALS: BP 128/82
--- NOTE | 2019-03-31 14:11 | ED ---
Upper Extremity Pain - HPI Summary HPI Summary: Patient is a 78-year-old male presenting to the ED with right-sided shoulder pain. He states he has been doing more frequent exercises while at home and thinks he strained his anterior shoulder. He is having anterior shoulder pain without radiation. He continues to be able to abduct, adduct, flex and extend the shoulder joint, but endorses a "clicking sensation." He states this sensation has been going on approximately one week since "overdoing it" during his stretching exercises. He does have a history of stroke and his was concerned for strokelike symptoms. The patient did endorse some intermittent numbness and tingling into the right fingertips, however this has remained intermittent and had acute onset at the time of his right shoulder pain. He denies any other strokelike symptoms. He denies any headache, facial droop, patient is alert and oriented and is at his baseline. - History of Current Complaint Chief Complaint: EDShouldGlennj Stated Complaint: POSSIBLE STOKE PER DOC Time Seen by Provider: 03/31/19 11:44 Hx Obtained From: Patient Mechanism Of Injury: Unknown Onset/Duration: Started Weeks Ago Timing: Intermittent Severity Initially: Moderate Severity Currently: Mild Pain Location: Shoulder Character: Aching Aggravating Factor(s): Movement, Lifting, Flexion, Extension, Internal/External Rotation, Abduction, Adduction Alleviating Factor(s): Rest, Ice Associated Signs & Symptoms: Positive: Negative. Negative: Swelling, Redness, Weakness, Numbness/Tingling Related History: Dominant Hand Right - Allergies/Home Medications Allergies/Adverse Reactions: Allergies Allergy/AdvReac Type Severity Reaction Status Date / Time No Known Allergies Allergy Verified 03/31/19 11:43 PMH/Surg Hx/FS Hx/Imm Hx Previously Healthy: Yes Endocrine/Hematology History: Denies: Hx Diabetes Cardiovascular History: Reports: Hx Coronary Artery Disease, Hx Hypertension, Hx Valvular Heart Disease, Other Cardiovascular Problems/Disorders - a fib Denies: Hx Pacemaker/ICD Respiratory History: Reports: Hx Sleep Apnea, Other Respiratory Problems/ Disorders - SLEEP APNEA History: Reports: Other Problems/Disorders - elevated PSA - followed by srinivasa Denies: Hx Renal Disease Musculoskeletal History: Reports: Hx Arthritis - right knee osteoarthritis Denies: Hx Rheumatoid Arthritis, Hx Osteoporosis Sensory History: Reports: Hx Contacts or Glasses - readers Denies: Hx Hearing Aid Opthamlomology History: Reports: Hx Contacts or Glasses - readers Psychiatric History: Denies: Hx Panic Disorder - Surgical History Surgery Procedure, Year, and Place: hernia repair 2010 [facility]. deviated septum repai 2000. appendectomy Hx Anesthesia Reactions: No - Immunization History Hx Pertussis Vaccination: No Immunizations Up to Date: Yes Infectious Disease History: No Infectious Disease History: Reports: Traveled Outside the [place] in Last 30 Days Denies: Hx of Known/Suspected MRSA - Social History Occupation: Unemployed Lives: With Family Alcohol Use: Rare Hx Substance Use: No Substance Use Type: Reports: None Hx Tobacco Use: Yes Smoking Status (MU): Former Smoker Type: Cigarettes Amount Used/How Often: 1/2 ppd Review of Systems Constitutional: Negative Negative: Fever, Chills, Fatigue, Skin Diaphoresis Negative: Palpitations, Chest Pain Negative: Shortness Of Breath, Cough Negative: Abdominal Pain, Vomiting, Diarrhea, Nausea Positive: Arthralgia - right shoulder discomfort Skin: Negative Neurological: Negative All Other Systems Reviewed And Are Negative: Yes Physical Exam Triage Information Reviewed: Yes Vital Signs On Initial Exam: Initial Vitals Temp Pulse Resp BP Pulse Ox 98.1 F 79 16 138/97 97 03/31/19 11:37 03/31/19 11:37 03/31/19 11:37 03/31/19 11:37 03/31/19 11:37 Vital Signs Reviewed: Yes Appearance: Positive: Well-Appearing, Well-Nourished Skin: Positive: Warm, Skin Color Reflects Adequate Perfusion Head/Face: Positive: Normal Head/Face Inspection Eyes: Positive: YANDEL, Conjunctiva Clear Neck: Positive: Supple, No Lymphadenopathy Respiratory/Lung Sounds: Positive: Clear to Auscultation, Breath Sounds Present Cardiovascular: Positive: RRR, Pulses are Symmetrical in both Upper and Lower Extremities Musculoskeletal: Positive: Pain @ - right shoulder pain Neurological: Positive: Sensory/Motor Intact, Alert, Oriented to Person Place, Time, Facial Symmetry, Speech Normal. Negative: Disoriented, Facial Droop, Slurred Speech, Ataxic Gait, Dysarthric Aphasia Psychiatric: Positive: Normal, Affect/Mood Appropriate AVPU Assessment: Alert Diagnostics - Vital Signs Vital Signs Temp Pulse Resp BP Pulse Ox 03/31/19 13:22 96.9 F 60 20 128/82 96 03/31/19 13:06 55 20 128/82 99 03/31/19 13:00 54 17 99 03/31/19 12:23 56 19 136/89 99 03/31/19 12:05 66 26 136/89 99 03/31/19 12:04 52 15 98 03/31/19 11:37 98.1 F 79 16 138/97 97 - Laboratory Lab Statement: Any lab studies that have been ordered have been reviewed, and results considered in the medical decision making process. Course/Dx - Course Course Of Treatment: During this course of treatment, the patient is evaluated for right shoulder pain. On physical examination, patient is able to perform all shoulder exam well, however there is a notable "clicking sensation" to the right shoulder. He denies any pain with palpation. He is only endorsing pain with range of motion of the shoulder. X-rays obtained which are negative for any acute findings other than osteopenia and osteoporosis. This was made aware to the patient. He states he will follow up with Ela Montoya. Again, it was discussed with the patient I am not finding any evidence of strokelike symptoms. He is ambulating well, no weakness is noted in the bilateral upper and lower extremities. No facial droop, patient is at his baseline and is alert and oriented 3. - Diagnoses Differential Diagnosis/HQI/PQRI: Positive: Strain, Sprain Provider Diagnoses: Shoulder strain Discharge - Sign-Out/Discharge Documenting (check all that apply): Patient Departure Patient Received Moderate/Deep Sedation with Procedure: No - Discharge Plan Condition: Stable Disposition: HOME Patient Education Materials: Shoulder Pain (ED) Referrals: Jazz Charles MD [Medical Doctor] - Juan Jose Salinas MD [Primary Care Provider] - Additional Instructions: Please follow-up with orthopedics as suggested Moist heat to the area as well as [place] balm/icy hot may help with symptoms Do not put these over each other as it may bring the skin Continue gentle stretches, however do not exert yourself to worsen the condition - Billing Disposition and Condition Condition: STABLE Disposition: Home
== END 2019-03-31 13:23 | disposition home or self-care (01) ==
LOC: ED 11:35
DX: S46.911A Strain of unspecified muscle, fascia and tendon at shoulder and upper arm level, right arm, initial encounter (principal); X50.9XXA Other and unspecified overexertion or strenuous movements or postures, initial encounter; Y93.B9 Activity, other involving muscle strengthening exercises; Y92.9 Unspecified place or not applicable; M85.811 Other specified disorders of bone density and structure, right shoulder; M19.011 Primary osteoarthritis, right shoulder; I25.10 Atherosclerotic heart disease of native coronary artery without angina pectoris; I10 Essential (primary) hypertension; Z87.891 Personal history of nicotine dependence
CPT/HCPCS: 99282

== ENCOUNTER 2019-04-01 10:17 | Emergency (ER) | payer MEDICARE ==
--- NOTE | 2019-04-01 10:47 | ED ---
Neurological HPI - HPI Summary HPI Summary: Patient is a 78 y old M accompanied by his daughter with a chief complaint of a weakness in his right leg with a sudden onset of 4 days (03/28/19). Patient rates severity of pain at 7/10. Patient reports that he started limping in his right leg, dragging his foot, and his left arm was drooping with lack of control in his hands. Patient reports an intermittent LINN for the past week, numbness and pain in his left arm and shoulder. Symptoms are alleviated by nothing. Symptoms are aggravated by nothing. Patient reports to have had a stroke on his right side 3 years ago, causing right-sided weakness in the extremities. Patient reports to have slurred speech then, but he has since then gained his strength back without slurred speech until the symptoms began 4 days ago. Patient reports to be foggy now. Patients neurologist is Dr. Blank who prescribed him Coumadin for his stroke symptoms. Patient reports to have gotten an INR reading on 03/24/19 which was good. Patient reports to take Tylenol as pain medication. Patient denies any pain in face, fever, chills, erythema of eyes, sore throat, CP, SOB, cough, abdominal pain, N/V, dysuria, hematuria, myalgia, edema, rash, or dizziness. Patient reports to have hydroxyurea for lower platelets which were discovered after his stroke. Patient does not use a pacemaker. - History of Current Complaint Chief Complaint: EDNeurologicalDeficit Stated Complaint: DROOPY ARM PER PT Time Seen by Provider: 04/01/19 10:28 Hx Obtained From: Patient, Family/[employer] - daughter Onset/Duration: Sudden Onset, Started days ago - four, Still Present Timing: Sudden Onset Onset Severity: Mild Current Severity: Moderate Neurological Deficit Location: RLE Pain Intensity: 7 Pain Scale Used: 0-10 Numeric Character: Weak - in RLE, Numbness/Tingling - left Aggravating: Nothing Alleviating: Nothing Associated Signs and Symptoms: Positive: Headache, Weakness - RLE, Pain - In right leg and left arm, Numbness - LUE. Negative: Dizziness, Nausea/Vomiting, Fever, Chest Pain, Shortness of Breath Related Hx: Coumadin - Additional Pertinent History Primary Care Physician: KARAN - Allergy/Home Medications Allergies/Adverse Reactions: Allergies Allergy/AdvReac Type Severity Reaction Status Date / Time No Known Allergies Allergy Verified 03/31/19 11:43 Home Medications: Home Medications Acetaminophen [Acetaminophen Extra Strength] 1,000 mg PO BID PRN 04/01/19 [ History Confirmed 04/01/19] Metoprolol Succinate XL TAB* [Toprol XL TAB*] 25 mg PO QAM 04/01/19 [History Confirmed 04/01/19] Warfarin TAB(*) [Coumadin TAB(*)] 7.5 mg PO SUTUTHSA 04/01/19 [History Confirmed 04/01/19] diPHENhydraMINE PO* [Benadryl PO 25 MG TAB*] 25 mg PO QAM PRN 04/01/19 [History Confirmed 04/01/19] PMH/Surg Hx/FS Hx/Imm Hx Endocrine/Hematology History: Denies: Hx Diabetes Cardiovascular History: Reports: Hx Coronary Artery Disease, Hx Hypertension, Hx Valvular Heart Disease, Other Cardiovascular Problems/Disorders - a fib Denies: Hx Pacemaker/ICD Respiratory History: Reports: Hx Sleep Apnea, Other Respiratory Problems/ Disorders - SLEEP APNEA History: Reports: Other Problems/Disorders - elevated PSA - followed by srinivasa Denies: Hx Renal Disease Musculoskeletal History: Reports: Hx Arthritis - right knee osteoarthritis Denies: Hx Rheumatoid Arthritis, Hx Osteoporosis Sensory History: Reports: Hx Contacts or Glasses - readers Denies: Hx Hearing Aid Opthamlomology History: Reports: Hx Contacts or Glasses - readers Psychiatric History: Denies: Hx Panic Disorder - Surgical History Surgery Procedure, Year, and Place: hernia repair 2009 [facility] [place] deviated septum repai 1999. appendectomy Hx Anesthesia Reactions: No Infectious Disease History: No Infectious Disease History: Denies: Hx of Known/Suspected MRSA, Traveled Outside the [place] in Last 30 Days - Family History Known Family History: Positive: Hypertension - Social History Alcohol Use: Rare Hx Substance Use: No Substance Use Type: Reports: None Hx Tobacco Use: Yes Smoking Status (MU): Former Smoker Type: Cigarettes Amount Used/How Often: 1/2 ppd Review of Systems Negative: Fever, Chills Negative: Erythema Negative: Sore Throat Negative: Chest Pain Negative: Shortness Of Breath, Cough Negative: Abdominal Pain, Vomiting, Nausea Negative: dysuria, hematuria Negative: Myalgia, Edema Negative: Rash Neurological: Other - (-): Dizziness Positive: Headache, Weakness - in RLE, Numbness - in LUE All Other Systems Reviewed And Are Negative: Yes Physical Exam - Summary Physical Exam Summary: Constitutional: Well-developed, Well-nourished, Alert. (-) Distressed Skin: Warm, Dry HENT: Normocephalic; Atraumatic Eyes: Conjunctiva normal Neck: Musculoskeletal ROM normal neck. (-) JVD, (-) Stridor, (-) Tracheal deviation Cardio: Rhythm regular, rate normal, Heart sounds normal; Intact distal pulses; The pedal pulses are 2+ and symmetric. Radial pulses are 2+ and symmetric. (-) Murmur Pulmonary/Chest wall: Effort normal. (-) Respiratory distress, (-) Wheezes, (-) Rales Abd: Soft. (-) Tenderness, (-) Distension, (-) Guarding, (-) Rebound Musculoskeletal: (-) Edema Lymph: (-) Cervical adenopathy Neuro: Alert, Oriented x3, Smile has asymmetry to the right, Right leather cartridge belt maker was weak , Cranial nerves II-XII are grossly intact. (+) Dysmetria with right side pronator drip, (-) Nystagmus, (+) Cerebellar ataxia by finger to nose testing in the right arm. GCS: 15. NIH: 3. (see NIH scale) Psych: Mood and affect Normal Triage Information Reviewed: Yes Vital Signs On Initial Exam: Initial Vitals Temp Pulse Resp BP Pulse Ox 97.8 F 83 18 146/90 98 04/01/19 10:24 04/01/19 10:24 04/01/19 10:24 04/01/19 10:24 04/01/19 10:24 Vital Signs Reviewed: Yes - Maude Coma Scale Best Eye Response: 4 - Spontaneous Best Motor Response: 6 - Obeys Commands Best Verbal Response: 5 - Oriented Coma Scale Total: 15 Diagnostics - Vital Signs Vital Signs Temp Pulse Resp BP Pulse Ox 04/01/19 10:24 97.8 F 83 18 146/90 98 - Laboratory Result Diagrams: 04/01/19 10:41 04/01/19 10:41 Lab Statement: Any lab studies that have been ordered have been reviewed, and results considered in the medical decision making process. - Radiology Brain MRI Radiology Interpretation Completed By: Radiologist Summary of Radiographic Findings: Impression: 1. Acute punctate infarct in the subcortical white matter of the posterior left frontal lobe. There is no hemorrhage or significant mass effect. 2. Old infarcts along the left internal watershed territory and left frontoparietal cortex. 3. Mild chronic small vessel scanner disease. 4. Moderate cerebral volume loss. ED physician has reviewed this radiology report. - CT Brain CT CT Interpretation Completed By: Radiologist Summary of CT Findings: Per radiologist,. 1. Acute punctate infarct in the subcortical white matter of the posterior left frontal. lobe. There is no hemorrhage or significant mass effect. 2. Old infarcts along the left internal watershed territory and left frontoparietal. cortex. 3. Mild chronic small vessel scanner disease. 4. Moderate cerebral volume loss. ED physician has reviewed this report. Head CTA CT Interpretation Completed By: Radiologist Summary of CT Findings: Head CT Impression: 1. Old internal watershed territory and left frontoparietal cortex infarcts. 2. The acute punctate subcortical white matter infarct in the posterior left frontal lobe is better appreciated by the same day MRI. There is no hemorrhage or significant mass effect. 3. Moderate cerebral volume loss. ED physician has reviewed this radiology report. Head CTA Impression: 1. No acute occlusive disease. ED physician has reviewed this radiology report. Neck CTA Impression: 1. 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 An underlying condition such as fibromuscular dysplasia is not excluded. 2. Soft plaque at the origin of the left common carotid artery results in less than 50% stenosis (by NASCET criteria). ED physician has reviewed this radiology report. - EKG 1043 Cardiac Rate: Other Rate - 64 BPM EKG Rhythm: Atrial Fibrillation Summary of EKG Findings: 64 BPM, Atrial fibrillation, no STEMI NIH Scale - NIH Scale Level of Consciousness: Alert/Keenly Responsive Ask Patient the Month and His/Her Age: Both Correct Ask Pt to Open/Close Eyes and [employer] Power[employer] Mechanic/Release Non-Paretic Hand: Both Correctly Best Gaze (Only Horizontal Eye Movement): Normal Visual Field Testing: No Visual Loss Facial Paresis-Pt to Smile & Close Eyes or Grimace Symmetry: Minor Paralysis Motor Function - Right Arm: Drifts LT 10 seconds Motor Function - Left Arm: No Drift-Holds 10 Seconds Motor Function - Right Leg: No Drift-Holds 10 Seconds Motor Function - Left Leg: No Drift-Holds 10 Seconds Limb Ataxia-Must be out of Proportion to Weakness Present: Present in One Limb Sensory (Use Pinprick to Test Arms/Legs/Trunk/Face): Normal Best Language (Describe Picture, Name Items): No Aphasia Dysarthria (Read Several Words): Normal Extinction and Inattention: No Abnormality Total Score: 3 Re-Evaluation - Re-Evaluation First Eval Re-Evaluation Time: 13:35 Comment: I spoke with the patient and daughter concerning transfer. They would like to transfer to [facility] despite possible extra billing costs for the ambulance. Second Eval Re-Evaluation Time: 15:00 Change: Unchanged Course/Dx - Course Course Of Treatment: Patient is a 78 y old M accompanied by his daughter with a chief complaint of weakness in the RLE with a sudden onset of 4 days (03/28/19). Patient rates severity of pain at 7/10. Patient reports that he started limping in his right leg, dragging his foot, and his left arm was drooping with lack of control in his hands. Patient reports an intermittent LINN for the past week, numbness and pain in his left arm and shoulder. Patient reports to have had a stroke on his right side 3 years ago. Patient denies any pain in face, fever, chills, erythema of eyes, sore throat, CP, SOB, cough, abdominal pain, N/V, dysuria, hematuria, myalgia, edema, rash, or dizziness. Physical exam reveals smile has asymmetry to the right, right leather cartridge belt maker was weak, right sided pronator drip , cerebellar ataxia in the right arm during finger to nose test; GCS: 15, NIH: 3 (see scale). Blood work reveals MCV 96, MCH 32, INR 2.38, APTT 46.7, Creatinine 1.25, and Total Bilirubin 1.20. EKG reveals 64 BPM, atrial fibrillation, and no STEMI. Patient was given Iodixanol 80 ml in the ED for contrast CT. Head CT Impression: 1. Old internal watershed territory and left frontoparietal cortex infarcts. 2. The acute punctate subcortical white matter infarct in the posterior left frontal lobe is better appreciated by the same day MRI. There is no hemorrhage or significant mass effect. 3. Moderate cerebral volume loss. Head CTA Impression: 1. No acute occlusive disease. Neck CTA Impression: 1. 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 An underlying condition such as fibromuscular dysplasia is not excluded. 2. Soft plaque at the origin of the left common carotid artery results in less than 50% stenosis (by NASCET criteria ). Brain MRI: 1. Acute punctate infarct in the subcortical white matter of the posterior left frontal lobe. There is no hemorrhage or significant mass effect. 2. Old infarcts along the left internal watershed territory and left frontoparietal cortex. 3. Mild chronic small vessel scanner disease. 4. Moderate cerebral volume loss. At 1330, I discussed the patient's case with Dr. Willson, and Bob Rebollar, CODY. They suggest transfer. Dr. Willson already has spoken with [facility] neurology. Dr. Wynn accepts the patient for transfer ED to ED. I spoke with the patient concerning transfer and their preference for the hospital of transfer. I discussed the potential additional ambulance billing related to extra mileage. They agree and understand with the plan. He is diagnosed with carotid artery stenosis and acute stroke. - Diagnoses Provider Diagnoses: Carotid artery stenosis, Stroke, acute, within 8 weeks - Physician Notifications Discussed Care Of Patient With: Ra Willson - neurology Time Discussed With Above Provider: 13:30 Instructed by Provider To: Other - I discussed the patient's case with Dr. Willson , and Bob Rebollar, CODY. They suggest transfer. Dr. Willson already has spoken with [facility] neurology. Dr. Wynn accepts the patient for transfer ED to ED. Discharge - Sign-Out/Discharge Documenting (check all that apply): Patient Departure - Patient is accepted for transfer to [facility], accepted by Dr. Wynn. Patient Received Moderate/Deep Sedation with Procedure: No - Discharge Plan Condition: Stable Disposition: TRANS HIGHER LVL OF CARE FAC Referrals: Juan Jose Salinas MD [Primary Care Provider] - - Billing Disposition and Condition Condition: STABLE Disposition: Trans Higher Lvl of Care Fac - Attestation Statements Document Initiated by Scribe: Yes Documenting Scribe: Siri Manning Provider For Whom Scribe is Documenting (Include Credential): Jorge Jackson MD Scribe Attestation: I, Siri Manning, scribed for Jorge Jackson MD on 04/01/19 at 1458. Scribe Documentation Reviewed: Yes Provider Attestation: The documentation as recorded by the scribe, Siri Manning accurately reflects the service I personally performed and the decisions made by me, Jorge Jackson MD Status of Scribe Document: Viewed
[2019-04-01 10:58] LABS: ABS Eosinophils 0.1 10^3/ul (0-0.6); ABS Lymphocytes 1.4 10^3/ul (1.0-4.8); ABS Monocytes 0.5 10^3/ul (0-0.8); Eosinophil % 1.2 %; Hematocrit 44 % (42-52); Hemoglobin 14.9 g/dL (14.0-18.0); Lymphocyte % 23.8 %; Mean Corpuscular HGB Conc 34 g/dL (31-36); Mean Corpuscular Hemoglobin 32 pg (27-31); Mean Corpuscular Volume 96 fL (80-94); Mean Platelet Volume 8.2 fL (7.4-10.4); Platelet Count 335 10^3/uL (150-450); Red Blood Count 4.62 10^6 /uL (4.18-5.48); Red Cell Distribution Width 14 % (10-15)
[2019-04-01 11:08] LABS: Activated Partial Thrombo Time 46.7 seconds (26.0-38.0); INR 2.38 (0.82-1.09)
[2019-04-01 11:17] LABS: Troponin I 0.01 ng/mL (<0.04)
[2019-04-01 11:23] LABS: Albumin 4.3 g/dL (3.2-5.2); Albumin/Globulin Ratio 1.8 (1-3); BUN/Creatinine Ratio 12.8 (8-20); Calcium 9.3 mg/dL (8.6-10.3); EGFR African American 67.8 (>60); Globulin 2.4 g/dL (2-4); HDL Cholesterol 38.1 mg/dL; Potassium 4.4 mmol/L (3.5-5.0); Total Bilirubin 1.2 mg/dL (0.2-1.0); Total Protein 6.7 g/dL (6.4-8.9)
[2019-04-01] MEDS ORDERED: Iodixanol* (CONTRAST) 320 MG/ML 100 ML SDV IV ONE (11:30)
--- NOTE | 2019-04-01 14:10 | CONS ---
CC: Dr. Salinas; Dr. Blank * BRIEF CONSULTATION REPORT: DATE OF CONSULT: 04/01/19 LOCATION: He is currently in the ER bed 10. PRIMARY CARE PROVIDER: Dr. Salinas. TREATING NEUROLOGIST: Dr. Blank. REASON FOR CONSULT: New onset right-sided weakness. HISTORY OF PRESENT ILLNESS: Briefly, Mr. Dougherty is a 78-year-old gentleman with a history of atrial fibrillation, a history of hypercoagulable disorder, a history of prior stroke in the left MCA-SPRAY CREW distribution with some residual right-sided weakness, initially had aphasia which has since improved, was in his usual state of health when earlier this week he developed gradual onset of right-sided weakness that acutely worsened last night/this morning. He came to the ER last night, but at that time was complaining mainly of pain in the right shoulder, which he thought was due to the fact that he had been using his arm that day quite a bit. Workup of the right shoulder was done and he was sent home, but late last night earlier this morning, he noted more weakness on the right side and some numbness and tingling at times. My NIH stroke scale on presentation today was 5. He is outside of the tPA and large vessel occlusion window, but imaging was done which showed a small left posterior frontal lobe infarct. In addition, he had a CT angiogram which showed multiple pseudoaneurysms, some on the right side, several on the left side about 90% stenosis with the possibility of thrombus as well. Based on this, I contacted [facility] and reviewed the case with them. They reviewed the images, and because of the fact that he has a history of hypercoagulable state, a history of atrial fibrillation, currently therapeutic on Coumadin, a history of prior stroke as well as a complicated vascular history, it was felt that he would be better treated at a higher level of care. Also, his treating neurologic team from his prior stroke in 2014 was in [place], they know him well and were able to review all of his old records. So the plan is to transfer him up to [facility] for additional evaluation and treatment. No changes to his medications at this point. He will be transferred by ambulance to the [facility] ED. Accepting physician was Dr. Mao, stroke neurologist. [id number]/[facility] #: [id number] ANDRÉS
[2019-04-01] MEDS ORDERED: Acetaminophen TAB* 325 MG PO ONE (14:44)
[2019-04-01 15:50] VITALS: BP 152/113
== END 2019-04-01 15:49 | disposition short-term general hospital (02) ==
LOC: ED 10:17
DX: I65.29 Occlusion and stenosis of unspecified carotid artery (principal); I63.9 Cerebral infarction, unspecified; Z86.73 Personal history of transient ischemic attack (TIA), and cerebral infarction without residual deficits; I25.10 Atherosclerotic heart disease of native coronary artery without angina pectoris; I10 Essential (primary) hypertension; Z79.01 Long term (current) use of anticoagulants; Z79.899 Other long term (current) drug therapy; Z87.891 Personal history of nicotine dependence
CPT/HCPCS: 36415; 70496; 70498; 70551; 80053; 80061; 83605; 84484; 85025; 85610; 85730; 93005; 99284; Q9967